=== PATIENT | male | born 1950 | race Caucasian/White ===

== ENCOUNTER 2017-02-06 11:56 | Day surgery (SDC) | payer OTHER ==
[2017-02-06] VITALS (10 sets, daily range): BP systolic 102–126; BP diastolic 70–79; PULSE 42–53; RESP 10–14; O2SAT 96–99
[~2017-02-06] VITALS: Ht 185.4 cm; Wt 85.6 kg
[~2017-02-06 11:56] MED LIST: ALBU8.5H2 INHALATION; CeFAZolin Inj 2 GM in IV Premix 1 EACH IV ONE; FLUT16SP NS; FLUT250D2 IH; Lactated Ringer's 1,000 ML IV SCH
[2017-02-06] MEDS ORDERED: Glycopyrrolate 0.2 MG/ML 1mL Inj ONE (11:57)
[2017-02-06] MEDS ORDERED: EPHEDrine/NS 5 mg/mL 5 mL Syringe ONE (11:57)
[2017-02-06] MEDS ORDERED: Lidocaine PF 1% 30 mL Inj ONE (11:57)
[2017-02-06] MEDS ORDERED: Dexamethasone 4 mg/mL Inj ONE (11:57)
[2017-02-06] MEDS ORDERED: fentaNYL-PF 50 mCg/mL 2 mL Inj ONE (11:57)
[2017-02-06] MEDS ORDERED: Ondansetron 2 mg/mL 2 mL Inj ONE (11:57)
[2017-02-06] MEDS ORDERED: Propofol 10,000 mCg/mL 20 mL Inj ONE (11:57)
[2017-02-06] MEDS ORDERED: Lactated Ringer's 1,000 ML IV ONE (12:45)
[2017-02-06] MEDS ORDERED: CeFAZolin Inj 2 gm / 50mL D5W IV ONE (12:50)
--- NOTE | 2017-02-06 12:51 | PCM.HPANE ---
Patient Data Date of Service: Feb 06, 2017 Surgeon Admitting Provider: Attending Provider:Doug Robertson MD Primary Care Physician:Shell Crow MD Other Provider:Ben Engle Anesthesia Reason for Visit Right Inguinal Hernia Ht/WT & BMI Height (Feet): 6 Height (Inches): 1 Weight (Kilograms): 85.6 Body Mass Index 25.00 Allergies Coded Allergies: No Known Allergies (Verified Allergy, 03/02/14) Past Anesthesia History Anesthesia History: Denies:: Anesthesia Reactions, Difficult Intubation, Fam Anesthesia Reaction, Fam Malignant Hypertherm, Malignant Hyperthermia Diabetes History Hx Diabetes?: No MRSA MRSA: No Medications Hypertension Medication: No Home Meds Incl Beta Pramod: No Reported Medications Fluticasone Propionate (Fluticasone Propionate Nasal)16 Gm [place].susp1 [place] NS BID #16 GM Ref 0 02/04/17 Fluticasone Propionate (Flovent Diskus)250 Mcg Disk.w.dev1 Puff IH BID #1 INHALER Ref 0 02/04/17 Albuterol HFA (Proair HFA)8.5 Gm Hfa.aer.ad2 Puffs INHALATION Q4H PRN For Shortness of Breath #1 INHALER 02/04/17 Discontinued Reported Medications Fluticasone Propionate (Flovent Diskus)50 Mcg Disk.w.dev1 Puff IH BID #1 INHALER Ref 0 03/02/14 Albuterol HFA 8.5 Gm Hfa.aer.ad1-2 Puff IH Q 4-6HRS PRN PRN For Shortness of Breath #1 INHALER Ref 0 03/02/14 History History of ENT Problems?: Yes HEENT History: Positive for:: Sinus Problem (hx of sinus surgery) Denies:: Difficult Intubation Hearing Problem Hx of Heart Problems?: No (runs daily) Cardiovascular History: Denies:: Edema Hypertension Hx of Respiratory Problem?: Yes Respiratory History: Positive for:: Asthma (mild, intermittent - no inhalers needed for several weeks) Use of Inhalers / NEBS Denies:: COPD Oxygen Administration Pneumonia Tuberculosis Use of C-PAP Machine Hx Neurologic Problems?: No Neurological History: Denies:: CVA Multiple Sclerosis Parkinson's Disease Seizures Hx of GI Problems?: Yes Other GI Pertinent History: right inguinal hernia current admission problem Hx of Problems?: No Genitourinary History: Denies:: Kidney Stones Urinary Tract Infection Male Hx: Denies:: Prostate Problems Scrotal Mass Testicular Surgery Skin History: Denies:: History Skin Disorders? Pressure Ulcers Hx Musculoskeletal Problems?: Yes Musculoskeletal History: Positive for:: Musculoskeletal Trauma (prior hx of mallet finger repair) Hx of Psycho/Social Problems?: No Hx Surgeries?: Yes (sinus , mallet finger) Hx Any Other Health Problems?: Yes Other History: Denies:: Cancer Endocrine Disease Hospitalization Thyroid Disease History Blood Transfusions: Denies:: Blood Transfusions Hx Diabetes: No Hx Alcohol Use: YesAlcoholic Drinks Per Day: 1-2 beers weeklyHx Substance Use : No Smoking Status: Former Smoker Have You Smoked inLast 12 mo: No Stop/Bang S-Snoring: Do You Snore Loudly: No T-Tired: feel tired, fatigued: No O-Obsered: Observed not breath: No P-Blood Pressure: treated: No B- Body Mass Index > 35 kg/m2: No A- Age over 50: Yes N- Neck Large Circumference: No G- Gender Male: Yes PHAM Total Score: 2 PHAM Risk Assessment: Low Risk, <3 Yes Risk Assessment Category Category 1A: Patient has history of documented sleep apnea, and HAS NOT received any narcotic, sedative or anesthesia administration during this stay. Category 1B: Patient has history of documented sleep apnea, and HAS received any narcotic , sedative or anesthesia administration during this stay Category 2: Patient has SUSPECTED Obstructive Sleep Apnea, and HAS received any narcotic , sedative or anesthesia administration during this stay. Category 3: Patient has SUSPECTED Obstructive Sleep Apnea and HAS NOT received narcotic, sedative or anesthesia administration during this stay. Category 4: Outpatient in Procedural Areas with known sleep apnea or who screen positive for High Risk via the STOP/BANG questionnaire. Exam Exam Vital Signs Vital Signs Date Time Temp Pulse Resp B/P Pulse Ox O2 Delivery O2 Flow Rate FiO2 02/06/17 12:22 36.3 42 14 126/73 96 Room Air General Appearance: Alert, Oriented X3, Cooperative, No Acute Distress HEENT/AIRWAY: MP 2, Neck Movement (from), Mouth Opening (3 fb), Other (> 3 FB) Lungs: Clear to Auscultation, Normal Air Movement Heart: No Murmurs/Rubs/Gallops, Other (regular, bradycardic rhythm) Meds/Labs/Diagnostics Admission Meds Current Medications Lactated Ringer's (Lr) 1,000 ml @ ud STK-MED ONCE IV Last administered on t 12:45; Start 02/06/17 at 12:45; Stop 02/06/17 at 12:49; Status DC Plan Impression Patient chart reviewed, patient interviewed and anesthestic plan with risks, benefits, and alternatives discussed, and informed consent obtained. NPO Status: 02/06 WATER AND APPLE JUICE AT 1000 ASA Physical Status: ASA2 Mod Systemic Disease Anesthetic Plan: GA Bene/Risks/Altern/Consents: Yes HP Complete Prior to Induction: Yes Khadar Francois MD Feb 06, 2017 12:51
[2017-02-06] MEDS ORDERED: EPHEDrine Sulfate 50 mg/mL Inj IM PRN (13:15)
[2017-02-06] MEDS ORDERED: fentaNYL-PF 50 mCg/mL 2 mL Inj IVPUSH PRN (13:15)
[2017-02-06] MEDS ORDERED: EPHEDrine Sulfate 50 mg/mL Inj IVPUSH PRN (13:15)
[2017-02-06] MEDS ORDERED: HYDROmorphone 1 mg/mL Inj IVPUSH PRN (13:15)
[2017-02-06] MEDS ORDERED: Lactated Ringer's 500 ML IV PRN (13:15)
[2017-02-06] MEDS ORDERED: Labetalol 5 mg/mL 4 mL Inj IV PRN (13:15)
[2017-02-06] MEDS ORDERED: Phenylephrine 10,000 mCg/mL Inj IVPUSH PRN (13:15)
[2017-02-06] MEDS ORDERED: hydrALAZINE 20 mg/mL Inj IVPUSH PRN (13:15)
[2017-02-06] MEDS ORDERED: Ondansetron 2 mg/mL 2 mL Inj IVPUSH PRN (13:15)
[2017-02-06] MEDS ORDERED: Atropine 0.4 mg/mL Inj IVPUSH PRN (13:15)
[2017-02-06] MEDS ORDERED: Lactated Ringer's 1,000 ML IV SCH (13:15)
[2017-02-06] MEDS ORDERED: Bupivacaine-MPF 0.5% 30 mL Inj INFILTRATE ONE (13:21)
[2017-02-06] MEDS ORDERED: oxyCODONE-Acetamin 5-325 mg Tablet PO PRN (13:50)
--- NOTE | 2017-02-06 18:41 | PCM.ANEP2 ---
Post Anesthesia Evaluation ASA/CMS Post Anesthesia Date of Service: Feb 06, 2017 VS in Patient's Normal Range?: Yes Resp Stable; Airway Patent?: Yes CV Function & Hydration Stable: Yes Mental Status Recovered?: Yes Pain control Satisfactory?: Yes N/V Control Satisfactory?: Yes Khadar Francois MD Feb 06, 2017 18:41
--- NOTE | 2017-02-06 18:41 | PCM.ANEP1 ---
Post Anesthesia Phase 1 PACU Phase 1 Assessment Date of Service: Feb 06, 2017 Vital Signs Vital Signs Date Time Temp Pulse Resp B/P Pulse Ox O2 Delivery O2 Flow Rate FiO2 02/06/17 14:34 46 14 112/72 97 Room Air 02/06/17 14:25 53 12 122/73 97 Room Air 02/06/17 14:20 36.2 52 13 112/70 97 Room Air 02/06/17 14:15 36.2 52 12 102/70 99 Room Air 02/06/17 14:10 53 12 118/77 99 Nasal Cannula 2 02/06/17 14:05 50 10 110/75 98 Nasal Cannula 2 02/06/17 14:00 50 10 113/74 98 Nasal Cannula 2 02/06/17 13:55 123/73 02/06/17 13:54 37.0 117/79 02/06/17 12:22 36.3 42 14 126/73 96 Room Air Anesthetic Administered: GA Level of Alertness: Awake, talking SALDANA's with Equal Strength: Yes Pain: Yes Pain Scale Score: 4 Nausea or Vomiting: No Oxygen Delivery: Room Air Lungs: Clear to Auscultation, Normal Air Movement Dermatome Level: Full Sensation Khadar Francois MD Feb 06, 2017 18:41
--- NOTE | 2017-02-07 01:44 | OP ---
[address] [address] OPERATIVE REPORT PATIENT: TESSY GILMORE : 1950 MR#: [id number] ADMIT: 02/06/2017 JOB ID: [id number] DATE OF SURGERY: 02/06/2017 ANESTHESIA: General. PREOPERATIVE DIAGNOSIS(ES): Symptomatic right inguinal hernia. POSTOPERATIVE DIAGNOSIS(ES): Symptomatic right inguinal hernia (indirect). OPERATION: Open repair of right inguinal hernia with mesh. SURGEON: Doug Robertson MD. SIGN ERECTOR: Jeff Adams PA-C (the parts room assistant was required for the safe and timely completion of the case). COMPLICATIONS: None. ESTIMATED BLOOD LOSS: Minimal. CONDITION: Satisfactory. SPECIMEN: None. FINDINGS: There is a small indirect right inguinal hernia, as well as a moderate size cord lipoma. Standard repair using soft polypropylene mesh was performed. INDICATIONS AND SIGNIFICANT HISTORY: The patient is a 66-year-old man who is an avid runner, and approximately a month ago noticed some right groin pain during running. This progressed. He was diagnosed by his PCP with an inguinal hernia and referred to me. OPERATIVE TECHNIQUE: The patient was taken to the operating room and placed in the supine position. General anesthesia was administered and perioperative antibiotics were given. The abdomen and groin were prepped and draped in the standard surgical fashion and a procedure pause was performed. Local anesthetic was injected and a right inguinal incision made. Dissection was carried down through skin and subcutaneous tissue and the aponeurosis of the external oblique opened in line with the fibers. The cord was circumferentially dissected free. The floor appeared intact. The cord was investigated. There was a moderate-sized cord lipoma as well as a small hernia. The hernia sac was dissected free from the cord structures and ligated with 3-0 Vicryl. The cord lipoma was then excised using electrocautery. A piece of polypropylene soft mesh was then trimmed to the appropriate size and secured in place using interrupted 2-0 PDS sutures. The result was a nice reinforcement of the fold with recreation of the internal ring. The aponeurosis of the external oblique was then closed running 3-0 Vicryl, and 3-0 Vicryl was placed in Ambrose's. The skin was closed using 4-0 Monocryl. The entire procedure was well tolerated without complication. MTDD
== END 2017-02-06 23:59 | disposition home or self-care (01) ==
LOC: SAS 11:56
PROVIDERS: ATTEND General Practice
DX: K40.90 Unilateral inguinal hernia, without obstruction or gangrene, not specified as recurrent (principal); J45.909 Unspecified asthma, uncomplicated; N40.0 Benign prostatic hyperplasia without lower urinary tract symptoms; Z87.891 Personal history of nicotine dependence
CPT/HCPCS: 49505; C1781; J0690; J1100; J2405; J3010; J7120